=== PATIENT | female | born 1955 | race Caucasian/White ===

== ENCOUNTER 2016-12-15 13:47 | Observation (INO) | payer MEDICARE ==
[~2016-12-15] VITALS: Ht 167.6 cm; Wt 78.0 kg
[2016-12-15 15:34] LABS: URINE BILIRUBIN NEGATIVE (NEGATIVE); URINE BLOOD NEGATIVE (NEGATIVE); URINE GLUCOSE (UA) NORMAL (NORMAL); URINE KETONE NEGATIVE (NEGATIVE); URINE LEUKOCYTE ESTERASE TRACE (NEGATIVE); URINE NITRATE NEGATIVE (NEGATIVE); URINE PROTEIN NEGATIVE (NEGATIVE); UROBILINOGEN NORMAL mg/dL (<1.0)
[2016-12-15 15:44] LABS: URINE BACTERIA 1+ (NONE SEEN); URINE RBC 0-5 /[HPF] (0-2); URINE WBC 0-5 /[HPF] (0-5)
[2016-12-15 15:45] LABS: URINE AMORPHOUS SEDIMENT 3+
[2016-12-15 17:42] LABS: BASO % 0.2 % (0.1-1.2); EOS % 0.4 % (0.7-5.8); GRAN % 73.4 % (34.0-71.1); HEMATOCRIT 39.1 % (34-45); HEMOGLOBIN 13.3 g/dL (11.2-15.7); LYMPH # 1.8 10_X3_uL (1.2-3.7); LYMPH % 21.7 % (19.3-51.7); MEAN CORPUSCULAR HEMOGLOBIN 33.5 pg (27.0-33.0); MEAN CORPUSCULAR VOLUME 98.5 fL (79-95); MEAN PLATELET VOLUME 9.1 fl (7.5-11.5); MONO # 0.4 10_X3_uL (0.2-0.9); MONO % 4.3 % (4.7-12.5); PLATELET COUNT 450 x10_3/uL (182-369); RED BLOOD COUNT 3.97 x10_6/uL (3.9-5.2); RED CELL DISTRIBUTION WIDTH 12.7 % (11.7-14.4); WHITE BLOOD COUNT 8.1 x10_3/uL (4.0-10.0)
[2016-12-15 17:59] LABS: ALBUMIN 4.7 gm/dL (3.4-5.0); ALKALINE PHOSPHATASE 63 U/L (50-136); ALT/SGPT 12 U/L (3.5-33.9); AST/SGOT 17 U/L (7.04-26.96); BILIRUBIN,TOTAL 0.16 mg/dL (0.0-1.0); BLOOD UREA NITROGEN 13 mg/dL (7-18); CALCIUM 9.8 mg/dL (8.7-10.7); CARBON DIOXIDE 25 mmol/L (21-32); CREATINE KINASE 60 U/L (21-215); CREATININE 0.9 mg/dL (0.6-1.3); GLUCOSE,RANDOM 110 mg/dL (70-99); POTASSIUM 3.7 mmol/L (3.5-5.1); SODIUM 141 mmol/L (136-145); TOTAL PROTEIN 7.7 gm/dL (6.4-8.2)
[2016-12-15 21:41] LABS: PARTIAL THROMBOPLASTIN TIME 24.7 SECONDS (21.8-28.4); PROTHROMBIN TIME (PATIENT) 10.2 SECONDS (9.6-10.8)
[2016-12-16 00:10] LABS: CKMB 1.4 ng/ml (0.0-5.0)
[2016-12-16 00:11] LABS: TROP-I < 0.30 NG/ML (0.00-0.30)
[2016-12-16 06:35] LABS: CKMB 1.1 ng/ml (0.0-5.0); TROP-I < 0.30 NG/ML (0.00-0.30)
== END 2016-12-16 09:47 | disposition home or self-care (01) ==
LOC: ER 13:47 → MS 20:37 → UNDODEPER 12-17 12:23
PROVIDERS: Emergency Medicine; ADMIT Family Medicine
DX: R07.9 Chest pain, unspecified (principal); I10 Essential (primary) hypertension; Z90.49 Acquired absence of other specified parts of digestive tract; Z90.710 Acquired absence of both cervix and uterus; Z96.652 Presence of left artificial knee joint; R42 Dizziness and giddiness; R53.1 Weakness; Z88.8 Allergy status to other drugs, medicaments and biological substances; Z88.6 Allergy status to analgesic agent; Z79.899 Other long term (current) drug therapy; Z79.891 Long term (current) use of opiate analgesic; Z79.890 Hormone replacement therapy
CPT/HCPCS: 36415; 71010; 80053; 80061; 81001; 82550; 82553; 85025; 85610; 85730; 93005; 93041; 96374; 96375; 99070; 99284; 99285-25; G0378